=== PATIENT | female | born 1960 | race Caucasian/White ===

== ENCOUNTER 2023-11-30 08:12 | Inpatient (IN) ==
[2023-11-30] MEDS ORDERED: Ondansetron 4 mg VIAL 2 MG/ML 2 ml VIAL ONE (08:31)
[2023-11-30] MEDS ORDERED: Glycopyrrolate IV 0.2 MG/ML 1 ML VIAL ONE (08:31)
[2023-11-30] MEDS ORDERED: Lidocaine 2% PF 5 ML VIAL ONE (08:31)
[2023-11-30] MEDS ORDERED: Midazolam 2 mg/2 ml VIAL 1 mg/ml 2 ml VIAL (2 mg) ONE ×2 (08:32→11:18)
[2023-11-30] MEDS ORDERED: fentaNYL 100 mcg/2 ml 50 MCG/ML VIAL ONE (08:32)
[2023-11-30] MEDS: Buffered Lidocaine 1% SYRIN 1 ml INTRADERM ONE (08:49)
[2023-11-30] MEDS ORDERED: ceFAZolin 2 GM PREMIX 2 GM/50 ML BAG ONE (09:01)
[2023-11-30] MEDS ORDERED: Famotidine IV 10 MG/ML 2 ml VIAL (20 mg) ONE (09:01)
[2023-11-30] MEDS ORDERED: Tranexamic Acid 1 GM/100ML BAG 2,000 MG/200 ML BAG IV ONE (09:01)
[2023-11-30 09:29] LABS: Rapid COVID-19 Molecular Undetected (Undetected)
[2023-11-30] MEDS: Lactated Ringers 1000 ml BAG 1,000 ML IV SCH ×2 (09:29→15:50)
[2023-11-30] MEDS: Famotidine IV 10 MG/ML 2 ml VIAL (20 mg) IV ONE (09:29)
[2023-11-30] MEDS ORDERED: fentaNYL 100 mcg/2 ml 50 MCG/ML VIAL IV PRN (10:27)
[2023-11-30] MEDS ORDERED: Ondansetron 4 mg VIAL 2 MG/ML 2 ml VIAL IV PRN ×2 (10:27→13:53)
[2023-11-30] MEDS ORDERED: Naloxone 0.4 mg VIAL 0.4 mg/ml 1 ml VIAL IV PRN (10:27)
[2023-11-30] MEDS ORDERED: ROPIVACAINE 5 MG/ML 30 ML BTL (0.5%) ONE ×2 (10:36→10:43)
[2023-11-30] MEDS ORDERED: Bupivacaine-MPF SPINAL 7.5 MG/ML - 2ML AMP ONE (11:01)
[2023-11-30] MEDS ORDERED: Propofol 10 MG/ML 20 ML BTL ONE ×2 (12:41→13:17)
[2023-11-30] MEDS ORDERED: Ondansetron ODT 4 mg TAB 4 MG TAB PO PRN (13:53)
[2023-11-30] MEDS ORDERED: Lactulose 30 ml UDC PO PRN (13:53)
[2023-11-30] MEDS ORDERED: Magnesium Hydroxide LIQ 30 ML UDC PO PRN (13:53)
[2023-11-30] MEDS ORDERED: Morphine 2 MG/ML SYRINGE IV PRN (13:53)
[2023-11-30] MEDS: Magnesium Hydroxide LIQ 30 ML UDC PO SCH (20:11)
[2023-11-30] MEDS: CEFAZOLIN IVPB SCH (20:12)
[2023-11-30] MEDS: DEXTROSE IVPB SCH (20:12)
[2023-12-01 06:23] LABS: Hematocrit 32.3 % (35-45); Hemoglobin 11.1 g/dL (11.5-14.3); Mean Platelet Volume 8.1 fL (7.5-11.2); Platelet Count 218 10^3/uL (150-450)
[2023-12-01 06:42] LABS: Calcium 8.6 mg/dL (8.6-10.3); Creatinine, Serum 0.67 mg/dL (0.51-0.95); Potassium 4.6 mmol/L (3.5-5.0); eGFR CKD-EPI 96.9 (>60)
[2023-12-01] MEDS: Vitamin THERAPEUTIC TAB PO SCH (08:15)
[2023-12-01 11:01] VITALS: BP 113/59
[2023-12-01] MEDS: ceFAZolin 1 GM in Dextrose 1 GM/50 ML BAG IVPB SCH (12:28)
== END 2023-12-01 13:20 | disposition home or self-care (01) | DRG 470 ==
LOC: AA 08:12 → SSU 15:23
PROVIDERS: ADMIT Orthopaedic Surgery Adult Reconstructive Orthopaedic Surgery; ATTEND Orthopaedic Surgery Adult Reconstructive Orthopaedic Surgery

== ENCOUNTER 2024-03-28 05:40 | Inpatient (IN) ==
[~2024-03-28 05:40] MED LIST: Metoclopramide 5 MG/ML VIAL (10 mg) IV PRN; NS 0.45% 1000 ml BAG 1,000 ML IV SCH; Naloxone 0.4 mg VIAL 0.4 mg/ml 1 ml VIAL IV PRN; Ondansetron 4 mg VIAL 2 MG/ML 2 ml VIAL IV PRN; fentaNYL 100 mcg/2 ml 50 MCG/ML VIAL IV PRN
[2024-03-28] MEDS ORDERED: Tranexamic Acid 1 GM/100ML BAG 2,000 MG/200 ML BAG IV ONE (06:05)
[2024-03-28] MEDS ORDERED: Buffered Lidocaine 1% SYRIN 1 ml ONE (06:05)
[2024-03-28] MEDS ORDERED: ceFAZolin 2 GM PREMIX 2 GM/50 ML BAG ONE (06:05)
[2024-03-28] MEDS ORDERED: Ondansetron 4 mg VIAL 2 MG/ML 2 ml VIAL ONE (06:23)
[2024-03-28] MEDS ORDERED: fentaNYL 250 mcg/5 ml 50 MCG/ML 5 ml VIAL (250 MCG) ONE (06:23)
[2024-03-28] MEDS ORDERED: Midazolam 2 mg/2 ml VIAL 1 mg/ml 2 ml VIAL (2 mg) ONE ×2 (06:23→06:42)
[2024-03-28] MEDS ORDERED: Lidocaine 2% PF 5 ML VIAL ONE (06:23)
[2024-03-28 06:29] LABS: Rapid COVID-19 Molecular Undetected (Undetected)
[2024-03-28] MEDS ORDERED: ROPIVACAINE 5 MG/ML 30 ML BTL (0.5%) ONE ×2 (06:42→07:04)
[2024-03-28] MEDS ORDERED: Dexamethasone IV 4 MG/ML VIAL 1 ml VIAL ONE ×2 (06:42→07:54)
[2024-03-28] MEDS ORDERED: Propofol 10 MG/ML 20 ML BTL ONE (08:06)
[2024-03-28] MEDS ORDERED: Calcium Carb (TUMS) 500 mg CHEW TAB PO PRN (09:47)
[2024-03-28] MEDS ORDERED: Lactulose 30 ml UDC PO PRN (09:47)
[2024-03-28] MEDS ORDERED: Morphine 2 MG/ML SYRINGE IV PRN (09:47)
[2024-03-28] MEDS ORDERED: Magnesium Hydroxide LIQ 30 ML UDC PO PRN (09:47)
[2024-03-28] MEDS ORDERED: Ondansetron 4 mg VIAL 2 MG/ML 2 ml VIAL IV PRN (09:47)
[2024-03-28] MEDS ORDERED: Ondansetron ODT 4 mg TAB 4 MG TAB PO PRN (09:47)
[2024-03-28] MEDS: Lactated Ringers 1000 ml BAG 1,000 ML IV SCH ×2 (11:08→11:29)
[2024-03-28] MEDS: Buffered Lidocaine 1% SYRIN 1 ml INTRADERM ONE (11:28)
[2024-03-28] MEDS: Acetaminophen IV 1 GM/100ML 1,000 MG/100 ML BAG IV ONE (11:28)
[2024-03-28] MEDS: Scopolamine 1 mg/72hr PATCH TRANSDERM ONE (11:29)
[2024-03-28] MEDS: ceFAZolin 2 GM in NS PREMIX 2 GM/100 ML BAG IVPB SCH (16:04)
[2024-03-28] MEDS: Magnesium Hydroxide LIQ 30 ML UDC PO SCH (21:30)
[2024-03-29 08:24] LABS: Hematocrit 32.6 % (35-45); Hemoglobin 11.3 g/dL (11.5-14.3); Mean Platelet Volume 8.2 fL (7.5-11.2); Platelet Count 224 10^3/uL (150-450)
[2024-03-29] MEDS: Vitamin THERAPEUTIC TAB PO SCH (08:49)
[2024-03-29 09:32] LABS: Calcium 8.9 mg/dL (8.6-10.3); Creatinine, Serum 0.57 mg/dL (0.51-0.95); Potassium 4.5 mmol/L (3.5-5.0); eGFR CKD-EPI 100.8 (>60)
[2024-03-29 10:19] VITALS: BP 121/75
== END 2024-03-29 12:04 | disposition home or self-care (01) | DRG 470 ==
LOC: AA 05:40 → INTOOBSV 05:40 → SSU 09:47
PROVIDERS: ADMIT Orthopaedic Surgery Adult Reconstructive Orthopaedic Surgery; ATTEND Orthopaedic Surgery Adult Reconstructive Orthopaedic Surgery